=== PATIENT | female | born 2005 | race Caucasian/White ===

== ENCOUNTER 2024-01-08 00:18 | Emergency (ER) | payer OTHER, SELFPAY ==
[2024-01-08 00:24] VITALS: BP 98/62
--- NOTE | 2024-01-08 00:45 | ED.GENMED ---
History of Present Illness
General
Chief Complaint: Cold/Flu/URI Symptoms
Time Seen by Provider: 01/08/24 00:36
Travel History
Have you had any contact with someone who has COVID-19?: Unable to Answer
Do you have any symptoms of coronavirus? Fever > 100 degrees, chills, cough, shortness of breath, sore throat, loss of taste or smell, muscle aches, or headache?: Unable to Answer
History of Present Illness
History of Present Illness:
HPI: Patient presents with cold and flulike symptoms. This started about 30 hours ago while she was in [place]. She has a diffuse myalgias as well. She has no shortness of breath.
EXAM:
GENERAL: Well appearing in no distress
HEENT: Moist oral mucosa, she does sound somewhat congested
CARDIOVASCULAR: No murmurs, normal heart rate and rhythm, No chest wall tenderness
PULMONARY: No respiratory distress, breath sounds are clear and equal
ABDOMEN: Soft with no peritoneal signs, no tenderness
NEUROLOGIC: Excellent strength all extremities, no coordination deficits
PSYCHIATRIC: Appropriate mental status, normal insight and judgement
EXTREMITIES: Nontender, no edema, moves all extremities equally
SKIN: No rash, no lesions
ED COURSE:
12:50 AM: I initially evaluated patient
NUMBER AND COMPLEXITY OF PROBLEMS ADDRESSED AT THE ENCOUNTER
� Chronic conditions affecting care: ADHD
� Acute Exacerbation and/or Progression of Chronic Illness: This is an acute problem
� Differential Diagnosis includes: Viral syndrome, COVID-19, influenza, highly doubt pneumonia
AMOUNT AND/OR COMPLEXITY OF DATA TO BE REVIEWED AND ANALYZED
� I performed an independent evaluation of and my interpretation is:
EKG:
CT:
X-rays:
Laboratory Studies: COVID and flu testing are both negative
Other:
� Review of other/old records: No old records available for review
� Clinical information was obtained by an independent historian: None needed
� Prescriptions/Medications Considered but not given:
� Further testing considered but not performed: Breath sounds are clear and there is no clinical concern for pneumonia
RISK OF COMPLICATIONS AND/OR MORBIDITY OR MORTALITY OF PATIENT MANAGEMENT
� Social determinants of health affecting care: Flew here from [place] today
� Discussion with other providers:
� Escalation of care including admission/observation vs risk of discharge considered: The patient had swabs for both COVID and flu. She was given Motrin. She appears well-hydrated. I reassessed the patient at 1:30 AM and she
continues to appear well. I also recommend Zyrtec-D.
Phy Exam
Physical Exam
Physical Exam:
See HPI
Course
Orders/Labs/Results
Orders:
Orders
01/08/24 00:36
COVID-19 Antigen Urgent
Source: Nasal Swab
Influenza A+B Rapid Molecular Urgent
SOLIS Source: Nasal Swab
Specimen Description:
01/08/24 00:58
Ibuprofen [Motrin] 600 mg PO NOW STA
Vital Signs
Initial and Last Documented VS:
Initial Vital Signs
Temp Pulse Resp BP Pulse Ox
98.8 F 79 20 98/62 96
01/08/24 00:24 01/08/24 00:24 01/08/24 00:24 01/08/24 00:24 01/08/24 00:24
Last Documented Vital Signs
Temp Pulse Resp BP Pulse Ox
98.8 F 79 20 98/62 96
01/08/24 00:24 01/08/24 00:24 01/08/24 00:24 01/08/24 00:24 01/08/24 00:24
*Critical Care Note
Total Time (30-74mins, 75-104mins- exclusive of procedures): Not Applicable
ED Attending Note
-
Portions of this chart may have been created with voice recognition software.� Occasional wrong word or��sound alike� substitutions may have occurred due to the inherent limitations of voice recognition software.
Discharge Plan
Departure
Patient Disposition: Home (Routine Discharge)
Date of Disposition: 01/08/24
Time of Disposition: 01:28
Patient with high blood pressure during this ER visit?: No
Discharge Problem:
Acute viral syndrome
Instructions: Viral Syndrome (DC)
Prescriptions:
No Action
dextroamphetamine-amphetamine [Adderall XR] 20 mg Capsule,Extended Release 24hr
20 mg PO DAILY
Referrals:
Nikko Rivera CRNP [Family Provider] -
Activity Restrictions/Additional Instructions:
COVID and flu test are both negative. Please follow-up your primary care doctor. I recommend 3-4 [id number] ibuprofen (Motrin) every 8 hours with food for a few days. I also recommend going up to a pharmacy counter and asking for
Zyrtec-D�this can help congestion. Return here if worse.
Interventions
Interventions:
*Risk Screen - Suicide Last Done: 01/08/24 00:24
*General Assessment Last Done: 01/08/24 00:24
*Neglect/Abuse Screening Last Done: 01/08/24 00:24
ED- Fall Risk Assessment Last Done: 01/08/24 00:24
*ED COVID-19 Vaccine History Last Done: 01/08/24 00:24
[2024-01-08 01:12] LABS: COVID-19 Antigen Negative (Negative)
[2024-01-08] MEDS: MOTRIN 600 MG PO (01:22)
[2024-01-08 01:55] VITALS: BP 95/61
== END 2024-01-08 02:21 | disposition home or self-care (01) ==
LOC: EMR 00:18
PROVIDERS: Emergency Medicine; EMERGENCY PHYSICIAN Emergency Medicine; FAMILY PHYSICIAN Family Medicine
DX: B34.9 Viral infection, unspecified (principal); F90.9 Attention-deficit hyperactivity disorder, unspecified type; Z11.52 Encounter for screening for COVID-19
CPT/HCPCS: 99282; 87502; 87811